=== PATIENT | female | born 1950 | race Asian ===

== ENCOUNTER 2016-08-31 03:18 | Emergency (ER) | payer SELFPAY ==
[~2016-08-31] VITALS: Ht 152.4 cm; Wt 67.1 kg
[2016-08-31 05:30] LABS: EOSINOPHIL (%) 0.5 % (0-5); EOSINOPHIL COUNT 0.1 K/uL (0-0.3); IMMATURE GRANULOCYTE (%) 0.7 % (0.0-0.7); IMMATURE GRANULOCYTE COUNT 0.1 K/uL; INSTRUMENT ABS NEUTROPHIL CT 7.3 K/uL; LYMPHOCYTE COUNT 1.9 K/uL (1.0-2.8); MCHC 32.7 G/DL (30.0-36.0); MCV 97.9 FL (83-99); MEAN PLAT.VOLUME 10.2 uM^3 (9.5-12.4); MONOCYTE (%) 5.3 % (3-12); MONOCYTE COUNT 0.5 K/uL (0-0.8); NEUTROPHIL (%) 74.2 % (45-76); NEUTROPHIL COUNT 7.3 K/uL (1.8-6.4); PLATELET COUNT 246 K/uL (156-360); RBC DIS.WIDTH-CV 11.8 % (11.8-14.6); RBC DIS.WIDTH-SD 42.2 % (39-53); RED BLOOD COUNT 3.37 M/uL (3.80-5.20); WHITE BLOOD COUNT 9.8 K/uL (4.1-10.2)
[2016-08-31 05:37] LABS: CHLORIDE 109 mEq/L (99-109); POTASSIUM 3.4 mEq/L (3.7-5.4); SODIUM 142 mEq/L (136-147)
[2016-08-31 05:39] LABS: GLUCOSE 113 mg/dL (70-99)
[2016-08-31 05:41] LABS: ANION GAP 11 MEQ/L (2-14); TOTAL BILIRUBIN 0.5 mg/dL (0.0-1.0)
[2016-08-31 05:43] LABS: ALKALINE PHOSPHATASE 61 IU/L (3-129)
[2016-08-31 05:44] LABS: UREA NITROGEN (BUN) 15 mg/dL (9-23)
[2016-08-31 05:47] LABS: LIPASE 13 U/L (1.0-51.0)
[2016-08-31 05:49] LABS: GFR ESTIMATE (CALCULATED) > 59 mL/min/
[2016-08-31 05:52] LABS: TROP-I INTERPRETATION NEGATIVE; TROPONIN-I < 0.01 ng/mL (0.0-0.30)
[2016-08-31] MEDS ORDERED: FLAGYL500 MG PO (07:13)
[2016-08-31 07:57] VITALS: BP 149/82
== END 2016-08-31 07:59 | disposition home or self-care (01) ==
LOC: EDBD 03:18 → EME 03:18
PROVIDERS: Emergency Medicine
DX: K52.9 Noninfective gastroenteritis and colitis, unspecified (principal); Z91.013 Allergy to seafood
CPT/HCPCS: 74177; 80053; 83690; 84484; 85025; 93005; 99281; 99283